=== PATIENT | female | born 1955 | race Caucasian/White ===

== ENCOUNTER → 2025-05-29 09:49 | Outpatient (REF) | payer MEDICARE, OTHER, SELFPAY | LOC: RAD 09:49 | PROVIDERS: ATTENDING PHYSICIAN Physician Assistant Medical; FAMILY PHYSICIAN Nurse Practitioner Family; OTHER PHYSICIAN Internal Medicine Cardiovascular Disease | DX: R06.02 Shortness of breath (principal); I25.84 Coronary atherosclerosis due to calcified coronary lesion; E11.9 Type 2 diabetes mellitus without complications; Z82.49 Family history of ischemic heart disease and other diseases of the circulatory system | CPT/HCPCS: 75574; Q9967 ==

== ENCOUNTER 2025-06-26 07:59 | Day surgery (SDC) | payer MEDICARE, OTHER, SELFPAY ==
[2025-06-26] VITALS (19 sets, daily range): BP systolic 111–137; BP diastolic 65–76; BMI 26.1
[2025-06-26 08:22] LABS: Hematocrit 34.8 % (37.0-47.0); Hemoglobin 11.8 g/dL (12.0-16.0); Mean Corp Hgb Conc. 33.9 g/dL (33.0-37.0); Mean Corpuscular Volume 93.3 fL (81.0-99.0); Platelet Count 236 10^3/uL (130-400); Red Cell Dist. Width 13.0 % (11.5-14.5)
[2025-06-26 08:35] LABS: Blood Urea Nitrogen 21 mg/dl (7-17); Calcium 10.0 mg/dl (8.4-10.2); Carbon Dioxide 26 mmol/L (22-30); Chloride 107 mmol/L (98-107); Estimated Creatinine Clearance 64 ml/min; Glucose 162 mg/dl (70-99); Potassium 4.6 mmol/L (3.5-5.1); Sodium 137 mmol/L (135-145); eGFR > 60.00
[2025-06-26 08:44] LABS: Glucose - Point of Care 159 mg/dl (70-99)
[2025-06-26] MEDS: NSS 201 ML IV (08:44)
--- NOTE | 2025-06-26 10:08 | ITS.CL.CATH ---
Radio Journalist - Catheterization
Cardiac Catheterization
Procedure Report:
LEFT HEART CATHETERIZATION
Date of Procedure: June 26, 2025
Referring: Lola Mcneil MD
PROCEDURES:
1. Left heart catheterization, coronary angiogram.
2. Moderate sedation.
3. Functional physiologic testing of mid LAD
4. Functional physiologic testing of mid RCA
5. Femoral angiography
INDICATION: Abnormal stress test, GARCIA
ACCESS: Right radial artery, 6Fr. sheath, under US guidance. given significant spasm, we had to abort this access and obtain RFCA access to completed iFR.
2. Right common femoral artery, 6Fr sheath under US guidance using micropuncture kit.
HEMODYNAMICS : (mmHg)
AO (s/d) : 122/72
LVEDP : 18
No significant gradient across the aortic valve to suggest aortic stenosis.
CORONARY FINDINGS
Dominance: Right
Left Main Trunk (LMT): Large caliber vessel that gives rise to the LAD and LCx branches and is free of angiographic disease.
Left Anterior Descending Artery (LAD): Large caliber vessel that gives off 1 major diagonal branch which is medium caliber as it courses along the anterior inter-ventricular groove before wrapping around the cardiac apex. Mid LAD at level of
Diagonal take off has a 60% stenosis with iFR abnormal at 0.89.
Left Circumflex Artery (LCx): Large caliber vessel that gives off 2 major obtuse marginal (OM) branches as it courses along the atrio-ventricular (AV) groove. There is mild diffuse atherosclerotic plaque.
Right Coronary Artery (RCA): Large caliber dominant vessel that gives rise to the posterior descending artery (RPDA) and postero-lateral ventricular (RPLV) branches distally. Mid RCA has 50-60% stenosis with focal area of ectasia with iFR negative
at 0.94.
HEMODYNAMIC ASSESSMENT OF THE MID LAD WITH A [place] OMNI WIRE: The origin of the LCA was cannulated with a 5 Fr EBU 3.5 guide catheter. Intravenous heparin was administered and the ACT was followed during the procedure. Two hundred micrograms of
intracoronary nitroglycerin was given through the guide catheter. A [place] Omni wire was advanced to the guide catheter tip and normalized just outside the guide catheter. The Omni wire was then carefully manipulated across the stenosis in the
mid LAD with the iFR below the ischemic threshold measuring 0.89. The Omni wire was then pulled back to the guide catheter where the Pd/Pa measured 1.0 confirming no baseline drift in pressure readings.
HEMODYNAMIC ASSESSMENT OF THE mid RCA WITH A [place] OMNI WIRE: The origin of the RCA was cannulated with a 5 Fr JR4 guide catheter. Intravenous heparin was administered and the ACT was followed during the procedure. Two hundred micrograms of
intracoronary nitroglycerin was given through the guide catheter. A [place] Omni wire was advanced to the guide catheter tip and normalized just outside the guide catheter. The Omni wire was then carefully manipulated across the stenosis in the
mid RCA with the iFR above the ischemic threshold serially measuring 0.94. The Omni wire was then pulled back to the guide catheter where the Pd/Pa measured 1.0 confirming no baseline drift in pressure readings.
SEDATION: 47 minutes of procedural sedation was utilized. IV Midazolam and IV Fentanyl were administered. An independent medical assistant dermatology was present to assist with and help manage the patient's level of consciousness and physiologic status.
RADIATION SUMMARY: Fluoro Time (min): 10.8, Dose (mGy): 318.8, DAP (Gy.cm2) : 22
Femoral angiography: Right femoral arteriotomy is noted to be above the bifurcation and below the inferior epigastric artery. There is minimal luminal irregularities in the visualized external iliac and femoral vessels.
Closure Device: There were no immediate intra-procedural complications. The sheath was pulled in the cath lab radiology technician and a vascular-band applied to the right wrist for radial artery hemostasis using the patent hemostasis technique. 6Fr perclose at [facility]
with successful hemostasis.
CONCLUSIONS
1. Mid LAD at level of medium caliber diagonal take off has a 60% stenosis with iFR abnormal at 0.89.
2. Mid RCA has 50-60% stenosis with focal area of ectasia with iFR negative at 0.94.
3. Elevated LVEDP at 18mmHg.
RECOMMENDATIONS
1. Wean radial band per protocol. Monitor right hand perfusion and for bleeding from the radial site following removal of the vascular-band following trans-radial access. Bed rest per protocol.
2. Continue aggressive medical therapy and risk factor modification for secondary CAD prevention. We discussed that if she has ongoing GARCIA despite adequate medical therapy would consider provisional PCI of mid LAD.
3. Hydrate with normal saline to mitigate the risk of contrast-induced acute kidney injury.
4. Follow-up with Dr. Mcneil.
Yeni Clinton MD, [facility], [facility]
Copy to: Lola Mcneil MD
[2025-06-26 11:17] LABS: ACT-LR - POC 303 Seconds (116-155)
[2025-06-26 11:17] LABS: ACT-LR - POC 247 Seconds (116-155)
[2025-06-26 11:17] LABS: ACT-LR - POC 305 Seconds (116-155)
[2025-06-26] MEDS: LASIX 20 MG IV (14:32)
== END 2025-06-26 16:07 | disposition home or self-care (01) ==
LOC: CATH 07:59
PROVIDERS: ATTENDING PHYSICIAN Internal Medicine Interventional Cardiology; FAMILY PHYSICIAN Family Medicine; OTHER PHYSICIAN Internal Medicine Cardiovascular Disease
DX: I25.10 Atherosclerotic heart disease of native coronary artery without angina pectoris (principal); R94.39 Abnormal result of other cardiovascular function study; R06.09 Other forms of dyspnea
CPT/HCPCS: 93799; 80048; 82962; 85027; 85347; 93458; 99152; 99153; C1760; C1769; C1887; C1894; Q9967